=== PATIENT | male | born 1965 | race Caucasian/White ===

== ENCOUNTER 2021-01-17 14:57 | Emergency (ER) | payer SELFPAY ==
[~2021-01-17] VITALS: Ht 170 cm; Wt 72.7 kg
[~2021-01-17 14:57] MED LIST: ATEN25TA PO; INSASP10V SC; INSU100I16 SC; LISI10TA PO; METH4TAB PO; VARE1TAB17 PO
[2021-01-17] MEDS ORDERED: ATOR20TA66 PO (15:55)
[2021-01-17] MEDS ORDERED: ONDANSETRON 4 MG/2 ML (SDV) Z0FRAN IVP ONE (16:30)
[2021-01-17] MEDS ORDERED: LACTATED RINGERS 1,000 ML IV SCH ×2 (16:30→17:30)
--- NOTE | 2021-01-17 16:40 | ED GI ---
General Chief Complaint: Abdominal/GI Problems Stated Complaint: N/V,CONGESTION, HIGH BLOOD SUGAR Nursing Triage Note: pt c/o n/v starting yesterday with headache. called dr gaona's office for nausea meds et was instructed to come to ER for hyperglycemia. bs was 488 this morning et 340 just prior to arrival. he took 4 units of novolog prior to coming to ER. bs = 242 on arrival Source of Information: Patient Exam Limitations: No Limitations (LIZZY COLON APRN) History of Present Illness Date Seen by Provider: Jan 17, 2021 Time Seen by Provider: 16:39 Initial Comments To ER by private vehicle with reports of nausea and vomiting. He had a headache yesterday. No fevers or chills. He has a history of diabetes and his blood sugar was allegedly 488 this morning. Yesterday his blood sugar was controlled. No diarrhea. No abdominal pain. He was exposed to his granddaughter last week who had Covid though he tested negative for Covid on Thursday of this week. His headache is gone. Nausea vomiting persist. Timing/Duration: 1-2 Days Severity/Quality: Moderate Location: Other Radiation: No Radiation Activities at Onset: None Associated Symptoms: Nausea/Vomiting (LIZZY COLON APRN) Allergies and Home Medications Allergies Coded Allergies: NKANo Known Allergies (Verified Allergy, Unknown, 01/14/07) Home Medications Atenolol 25 Mg Tablet, 1 EACH PO DAILY, (Reported) Atorvastatin Calcium 20 Mg Tablet, 20 MG PO DAILY, (Reported) Last Action: New Order Insulin Aspart 10 Unit/0.1 Ml Vial, 8 UNIT SC AC, (Reported) Insulin Detemir 100 Unit/1 Ml Insuln.pen, 22 UNIT SC DAILY, (Reported) Last Action: Edited Lisinopril 10 Mg Tablet, 10 MG PO DAILY, (Reported) Ondansetron 8 Mg Tab.rapdis, 8 MG PO Q6H PRN for NAUSEA/VOMITING Prescribed by: LIZZY COLON on 01/17/211818 Patient Home Medication List Home Medication List Reviewed: Yes (LIZZY COLON APRN) Review of Systems Review of Systems Constitutional: see HPI EENTM: No Symptoms Reported Respiratory: No Symptoms Reported Cardiovascular: No Symptoms Reported Gastrointestinal: See HPI, Abdominal Pain, Nausea, Vomiting Genitourinary: No Symptoms Reported Musculoskeletal: no symptoms reported Skin: no symptoms reported Psychiatric/Neurological: No Symptoms Reported Endocrine: No Symptoms Reported Hematologic/Lymphatic: No Symptoms Reported (LIZZY COLON APRN) Past Orvzoej-Dkxiyu-Iqixls Hx Patient Social History Tobacco Use?: No Smoking Status: Former Smoker Substance use?: Yes Alcohol Use?: Yes Alcohol type: Hard Liquor Pt feels they are or have been: No (LIZZY COLON APRN) Immunizations Up To Date First/Initial COVID19 Vaccinat: july Second COVID19 Vaccination Maynor: august COVID19 Vaccine 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 oz. 72.902352bs; 25.00 BMI Method:Estimated General Appearance: WD/WN, no apparent distress Respiratory: no respiratory distress, no accessory muscle use Cardiovascular: regular rate, rhythm, no murmur Gastrointestinal: normal bowel sounds, soft Extremities: normal range of motion, non-tender Neurologic/Psychiatric: alert, normal mood/affect, oriented x 3 Skin: normal color, warm/dry (LIZZY COLON APRN) Progress/Results/Core Measures Results/Orders Lab Results Laboratory Tests Test 01/17/21 15:03 01/17/21 15:05 01/17/21 15:53 01/17/21 16:32 Range/Units White Blood Count 12.4 H 4.3-11.0 10^3/uL Red Blood Count 4.28 L 4.30-5.52 10^6/uL Hemoglobin 14.1 13.3-17.7 g/dL Hematocrit 41 40-54 % Mean Corpuscular Volume 95 80-99 fL Mean Corpuscular Hemoglobin 33 25-34 pg Mean Corpuscular Hemoglobin Concent 35 32-36 g/dL Red Cell Distribution Width 12.7 10.0-14.5 % Platelet Count 244 130-400 10^3/uL Mean Platelet Volume 10.2 9.0-12.2 fL Immature Granulocyte % (Auto) 0 % Neutrophils (%) (Auto) 78 H 42-75 % Lymphocytes (%) (Auto) 12 12-44 % Monocytes (%) (Auto) 10 0-12 % Eosinophils (%) (Auto) 0 0-10 % Basophils (%) (Auto) 0 0-10 % Neutrophils # (Auto) 9.6 H 1.8-7.8 10^3/uL Lymphocytes # (Auto) 1.5 1.0-4.0 10^3/uL Monocytes # (Auto) 1.2 H 0.0-1.0 10^3/uL Eosinophils # (Auto) 0.0 0.0-0.3 10^3/uL Basophils # (Auto) 0.0 0.0-0.1 10^3/uL Immature Granulocyte # (Auto) 0.1 0.0-0.1 10^3/uL Glucometer 242 H 70-110 MG/DL Sodium Level 135 135-145 MMOL/L Potassium Level 4.6 3.6-5.0 MMOL/L Chloride Level 98 98-107 MMOL/L Carbon Dioxide Level 25 21-32 MMOL/L Anion Gap 12 5-14 MMOL/L Blood Urea Nitrogen 31 H 7-18 MG/DL Creatinine 1.13 0.60-1.30 MG/DL Estimat Glomerular Filtration Rate 67 BUN/Creatinine Ratio 27 Glucose Level 238 H 70-105 MG/DL Calcium Level 10.4 H 8.5-10.1 MG/DL Corrected Calcium 10.0 8.5-10.1 MG/DL Total Bilirubin 2.3 H 0.1-1.0 MG/DL Aspartate Amino Transf (AST/SGOT) 37 H 5-34 U/L Alanine Aminotransferase (ALT/SGPT) 56 H 0-55 U/L Alkaline Phosphatase 98 40-136 U/L Total Protein 7.9 6.4-8.2 GM/DL Albumin 4.5 3.2-4.5 GM/DL Beta-Hydroxybutyrate (Chem panel) 1.60 H 0.00-0.27 MMOL/L Arterial Blood pH 7.44 H 7.37-7.43 SARS-CoV-2 RNA (RT-PCR) Not Detected Not Detecte Test 01/17/21 17:58 Range/Units Urine Color YELLOW Urine Clarity CLEAR Urine pH 6.0 5-9 Urine Specific [place] 1.025 H 1.016-1.022 Urine Protein TRACE H NEGATIVE Urine Glucose (UA) 3+ H NEGATIVE Urine Ketones 2+ H NEGATIVE Urine Nitrite NEGATIVE NEGATIVE Urine Bilirubin 2+ H NEGATIVE Urine Urobilinogen 0.2 < = 1.0 MG/DL Urine Leukocyte Esterase NEGATIVE NEGATIVE Urine RBC (Auto) TRACE-I NEGATIVE Urine RBC RARE /HPF Urine WBC RARE /HPF Urine Squamous Epithelial Cells RARE /HPF Urine Crystals NONE /LPF Urine Bacteria TRACE /HPF Urine Casts PRESENT /LPF Urine Hyaline Casts 2-5 H /LPF Urine Mucus MODERATE H /LPF Urine Culture Indicated NO (SHARIFA WEATHERS MD) Medications Given in ED Current Medications Medications Dose Ordered Sig/Johnathan Route Start Time Stop Time Status Last Admin Dose Admin Ondansetron HCl 8 mg ONCE ONCE IVP 01/17/21 16:30 01/17/21 16:31 DC 01/17/21 16:46 8 MG (SHARIFA WEATHERS MD) Vital Signs/I&O 01/17/21 01/17/21 15:44 18:40 Temp 36.4 36.4 Pulse 76 70 Resp 18 18 B/P (MAP) 140/86 (104) 109/82 (104) Pulse Ox 98 98 O2 Delivery Room Air (SHARIFA WEATHERS MD) Blood Pressure Mean: 104 FSBG Bedside Testing Finger Stick Blood Glucose: 242 (LIZZY COLON APRN) Departure Impression Primary Impression: Nausea & vomiting Disposition: 01 HOME, SELF-CARE Condition: Stable Departure-Patient Inst. Decision time for Depature: 18:17 (LIZZY COLON APRN) Referrals: SHARONDA GAONA MD (PCP/Family) Primary Care Physician Patient Instructions: No Instuctions Given Add. Discharge Instructions: 1. Return to ER for any concerns 2. Follow-up with your doctor next week 3. All discharge instructions reviewed with patient and/or family. Voiced understanding. Scripts Ondansetron (Ondansetron Odt) 8 Mg Tab.rapdis 8 MG PO Q6H PRN for NAUSEA/VOMITING, #10 TAB Prov: LIZZY COLON APRN 01/17/21 Work/School Note: Work Release Form Date Seen in the Emergency Department: Jan 19, 2021 Return to Work: Jan 17, 2021 ATTENDING PHYSICIAN NOTE: I was physically present as attending physician in the emergency department during the care of this patient, but I was not directly involved in the decision making or delivery of care for this patient. (SHARIFA WEATHERS MD) LIZZY COLON APRN Jan 17, 2021 16:40 SHARIFA WEATHERS MD Jan 17, 2021 19:29
[2021-01-17 16:49] LABS: BASOPHILS % (AUTO) 0 % (0-10); EOSINOPHILS % (AUTO) 0 % (0-10); HEMATOCRIT 41 % (40-54); HEMOGLOBIN 14.1 g/dL (13.3-17.7); LYMPHOCYTES # (AUTO) 1.5 10^3/uL (1.0-4.0); LYMPHOCYTES % (AUTO) 12 % (12-44); MEAN CORPUSCULAR HEMOGLOBIN 33 pg (25-34); MEAN CORPUSCULAR HGB CONC 35 g/dL (32-36); MEAN CORPUSCULAR VOLUME 95 fL (80-99); MEAN PLATELET VOLUME 10.2 fL (9.0-12.2); MONOCYTES # (AUTO) 1.2 10^3/uL (0.0-1.0); MONOCYTES % (AUTO) 10 % (0-12); NEUTROPHILS # (AUTO) 9.6 10^3/uL (1.8-7.8); NEUTROPHILS % (AUTO) 78 % (42-75); PLATELET COUNT 244 10^3/uL (130-400); WHITE BLOOD COUNT 12.4 10^3/uL (4.3-11.0)
[2021-01-17 16:52] LABS: ALBUMIN 4.5 GM/DL (3.2-4.5); POTASSIUM 4.6 MMOL/L (3.6-5.0)
[2021-01-17 16:54] LABS: CALCIUM 10.4 MG/DL (8.5-10.1)
[2021-01-17 16:55] LABS: TOTAL PROTEIN 7.9 GM/DL (6.4-8.2)
[2021-01-17 16:57] LABS: BILIRUBIN,TOTAL 2.3 MG/DL (0.1-1.0)
[2021-01-17 16:58] LABS: CREATININE SERUM 1.13 MG/DL (0.60-1.30)
[2021-01-17 18:04] LABS: CLARITY,URINE CLEAR; COLOR,URINE YELLOW; GLUCOSE, URINE (UA) 3+ (NEGATIVE); KETONES,URINE 2+ (NEGATIVE); LEUKOCYTE ESTERASE ,URINE NEGATIVE (NEGATIVE); NITRITE,URINE NEGATIVE (NEGATIVE); PROTEIN,URINE TRACE (NEGATIVE)
[2021-01-17 18:13] LABS: BACTERIA,URINE TRACE /HPF; BILIRUBIN,URINE 2+ (NEGATIVE); RBC,URINE RARE /HPF; SQUAMOUS EPITHELIAL CELL,UR RARE /HPF; WBC,URINE RARE /HPF
[2021-01-17] MEDS ORDERED: ONDA8TAB13 PO (18:19)
[2021-01-17 18:40] VITALS: BP 109/82
== END 2021-01-17 18:39 | disposition home or self-care (01) ==
LOC: EDUNIT# 14:57 → ER 14:59
DX: R11.2 Nausea with vomiting, unspecified (principal); E11.9 Type 2 diabetes mellitus without complications; Z20.822 Contact with and (suspected) exposure to COVID-19; Z87.891 Personal history of nicotine dependence; Z79.4 Long term (current) use of insulin
CPT/HCPCS: 36415; 80053; 81000; 82010; 82800; 82947; 85025; 87636

== ENCOUNTER 2021-04-21 05:07 | Emergency (ER) | payer SELFPAY ==
[~2021-04-21] VITALS: Ht 170 cm; Wt 73.0 kg
[~2021-04-21 05:07] MED LIST changes: +ATOR20TA66 PO; +ONDA8TAB13 PO
[2021-04-21] MEDS ORDERED: D5 NS 1000 ML IV SOLUTION 1,000 ML IV ONE ×2 (05:16→05:30)
--- NOTE | 2021-04-21 05:23 | ED General ---
General Chief Complaint: Glucose Problems Stated Complaint: LOW BLOOD SUGAR Nursing Triage Note: BROUGHT IN BY [facility] FOR LOW BLOOD GLUCOSE Source of Information: Patient Exam Limitations: No Limitations (HANANE CHAMORRO) History of Present Illness Date Seen by Provider: Apr 21, 2021 Time Seen by Provider: 05:09 Initial Comments Patient to the ER by EMS from home with chief complaint that he was unresponsive per his who could not get him to wake. EMS found his blood sugar to be 20. They gave him 250 cc of D10 normal saline. By the time he arrived to the EMS his blood sugar was 171. He is taking his insulin he states. He says he drinks every day about a pint of vodka. He is not having any pain, nausea, vomiting, diarrhea, fevers, chills, cough, sore throat, shortness of air. He says he got his booster vaccine for COVID-19 2 weeks ago and before that had 2 doses. He had influenza vaccine. (HANANE CHAMORRO) Allergies and Home Medications Allergies Coded Allergies: Bertin Known Allergies (Verified Allergy, Unknown, 01/14/07) Patient Home Medication List Home Medication List Reviewed: Yes (HANANE CHAMORRO) Home Medication List Reviewed: Yes (JACEY ABRAHAM MD) Atenolol (Tenormin 25 Mg) 25 Mg Tablet, 1 EACH PO DAILY, (Reported) Entered as Reported by: SANDRA JAUREGUI on 09/27/111845 Atorvastatin Calcium (Atorvastatin Calcium) 20 Mg Tablet, 20 MG PO DAILY, (Reported) Entered as Reported by: ISABELLA HANSEN on 01/17/211554 Insulin Aspart (Novolog) 10 Unit/0.1 Ml Vial, 8 UNIT SC AC, (Reported) Entered as Reported by: SANDRA JAUREGUI on 09/27/111845 Insulin Detemir (Levemir) 100 Unit/1 Ml Insuln.pen, 22 UNIT SC DAILY, (Reported) Entered as Reported by: SANDRA JAUREGUI on 09/27/111845 Lisinopril (Prinivil) 10 Mg Tablet, 10 MG PO DAILY, (Reported) Entered as Reported by: SANDRA JAUREGUI on 09/27/111845 Ondansetron (Ondansetron Odt) 8 Mg Tab.rapdis, 8 MG PO Q6H PRN for NAUSEA/VOMITING Prescribed by: LIZZY COLON on 01/17/211818 Review of Systems Review of Systems Constitutional: No chills, No diaphoresis EENTM: No ear discharge, No hearing loss Respiratory: No cough, No short of breath Cardiovascular: No edema, No palpitations Gastrointestinal: No abdominal pain, No constipation, No diarrhea; nausea; No vomiting Genitourinary: No discharge, No dysuria Musculoskeletal: No back pain, No joint pain (HANANE CHAMORRO) All Other Systems Reviewed Negative Unless Noted: Yes (HANANE CHAMORRO) Past Krtvxgb-Qossni-Ockdfj Hx Patient Social History Tobacco Use?: No Smoking Status: Former Smoker Substance use?: No Alcohol Use?: Yes Alcohol type: Beer, Hard Liquor Alcohol Frequency: Couple times a week Pt feels they are or have been: No (HANANE CHAMORRO) Immunizations Up To Date First/Initial COVID19 Vaccinat: july Second COVID19 Vaccination Maynor: august COVID19 Vaccine Straddle Truck Driver: CONTRERAS (HANANE CHAMORRO) Past Medical History Surgery/Hospitalization HX: IDDM,, HTN, HIGH CHOLESTEROL Reproductive Disorders: No Diabetes, Insulin dep Loss of Vision: Left (HANANE CHAMORRO) Physical Exam Vital Signs Vital Signs - First Documented 04/21/21 05:10 Temp 36.0 Pulse 104 Resp 18 B/P (MAP) 151/95 (113) Pulse Ox 97 O2 Delivery Room Air (JACEY ABRAHAM MD) Vital Signs Capillary Refill : Less Than 3 Seconds (HANANE CHAMORRO) Height, Weight, BMI Height: 5'7" Weight: 160lbs. oz. 72.451212wm; 25.00 BMI Method:Estimated General Appearance: Chronically ill, Mild Distress Eyes: Bilateral Eye Normal Inspection, Bilateral Eye PERRL, Bilateral Eye EOMI HEENT: PERRL/EOMI (Negative raccoon eyes), TMs Normal (Negative for talley sign or hemotympanum); No Moist Mucous Membranes Neck: Full Range of Motion, Normal Inspection, Non Tender, Supple Respiratory: Lungs Clear, Normal Breath Sounds, No Accessory Muscle Use, No Respiratory Distress Cardiovascular: Regular Rate, Rhythm, No Edema, Normal Peripheral Pulses Gastrointestinal: Normal Bowel Sounds, Non Tender, Soft Extremity: Normal Capillary Refill, Normal Inspection, Normal Range of Motion, No Pedal Edema Neurologic/Psychiatric: Alert, Oriented x3, Normal Mood/Affect Skin: Normal Color, Warm/Dry (HANANE CHAMORRO) Progress/Results/Core Measures Suspected Sepsis SIRS Temperature: Pulse: 104 Respiratory Rate: 18 Laboratory Tests 04/21/21 05:45: White Blood Count 8.5 Blood Pressure 151 /95 Mean: 113 Laboratory Tests 04/21/21 05:45: Creatinine 0.76, Platelet Count 256, Total Bilirubin 0.7 (HANANE CHAMORRO) Results/Orders Lab Results Laboratory Tests Test 04/21/21 05:14 04/21/21 05:45 04/21/21 06:00 04/21/21 06:06 Range/Units Glucometer 77 143 H 70-110 MG/DL White Blood Count 8.5 4.3-11.0 10^3/uL Red Blood Count 4.32 4.30-5.52 10^6/uL Hemoglobin 13.8 13.3-17.7 g/dL Hematocrit 41 40-54 % Mean Corpuscular Volume 96 80-99 fL Mean Corpuscular Hemoglobin 32 25-34 pg Mean Corpuscular Hemoglobin Concent 33 32-36 g/dL Red Cell Distribution Width 12.3 10.0-14.5 % Platelet Count 256 130-400 10^3/uL Mean Platelet Volume 9.6 9.0-12.2 fL Immature Granulocyte % (Auto) 0 % Neutrophils (%) (Auto) 81 H 42-75 % Lymphocytes (%) (Auto) 9 L 12-44 % Monocytes (%) (Auto) 9 0-12 % Eosinophils (%) (Auto) 1 0-10 % Basophils (%) (Auto) 1 0-10 % Neutrophils # (Auto) 6.9 1.8-7.8 10^3/uL Lymphocytes # (Auto) 0.8 L 1.0-4.0 10^3/uL Monocytes # (Auto) 0.8 0.0-1.0 10^3/uL Eosinophils # (Auto) 0.0 0.0-0.3 10^3/uL Basophils # (Auto) 0.0 0.0-0.1 10^3/uL Immature Granulocyte # (Auto) 0.0 0.0-0.1 10^3/uL Sodium Level 140 135-145 MMOL/L Potassium Level 4.0 3.6-5.0 MMOL/L Chloride Level 103 98-107 MMOL/L Carbon Dioxide Level 25 21-32 MMOL/L Anion Gap 12 5-14 MMOL/L Blood Urea Nitrogen 14 7-18 MG/DL Creatinine 0.76 0.60-1.30 MG/DL Estimat Glomerular Filtration Rate 106 BUN/Creatinine Ratio 18 Glucose Level 192 H 70-105 MG/DL Calcium Level 8.4 L 8.5-10.1 MG/DL Corrected Calcium 8.5 8.5-10.1 MG/DL Total Bilirubin 0.7 0.1-1.0 MG/DL Aspartate Amino Transf (AST/SGOT) 26 5-34 U/L Alanine Aminotransferase (ALT/SGPT) 24 0-55 U/L Alkaline Phosphatase 68 40-136 U/L C-Reactive Protein High Sensitivity 0.08 0.00-0.50 MG/DL Total Protein 6.6 6.4-8.2 GM/DL Albumin 3.9 3.2-4.5 GM/DL Serum Alcohol 74 H <10 MG/DL Urine Color YELLOW Urine Clarity CLEAR Urine pH 5.5 5-9 Urine Specific [place] 1.015 L 1.016-1.022 Urine Protein NEGATIVE NEGATIVE Urine Glucose (UA) 1+ H NEGATIVE Urine Ketones NEGATIVE NEGATIVE Urine Nitrite NEGATIVE NEGATIVE Urine Bilirubin NEGATIVE NEGATIVE Urine Urobilinogen 0.2 < = 1.0 MG/DL Urine Leukocyte Esterase NEGATIVE NEGATIVE Urine RBC (Auto) NEGATIVE NEGATIVE Urine RBC NONE /HPF Urine WBC NONE /HPF Urine Squamous Epithelial Cells NONE /HPF Urine Crystals NONE /LPF Urine Bacteria NEGATIVE /HPF Urine Casts NONE /LPF Urine Mucus NEGATIVE /LPF Urine Culture Indicated NO Urine Opiates Screen NEGATIVE NEGATIVE Urine Oxycodone Screen NEGATIVE NEGATIVE Urine Methadone Screen NEGATIVE NEGATIVE Urine Propoxyphene Screen NEGATIVE NEGATIVE Urine Barbiturates Screen NEGATIVE NEGATIVE Ur Tricyclic Antidepressants Screen NEGATIVE NEGATIVE Urine Phencyclidine Screen NEGATIVE NEGATIVE Urine Amphetamines Screen POSITIVE H NEGATIVE Urine Methamphetamines Screen POSITIVE H NEGATIVE Urine Benzodiazepines Screen NEGATIVE NEGATIVE Urine Cocaine Screen NEGATIVE NEGATIVE Urine Cannabinoids Screen NEGATIVE NEGATIVE Test 04/21/21 07:28 04/21/21 08:16 04/21/21 08:59 Range/Units Glucometer 124 H 147 H 185 H 70-110 MG/DL (JACEY ABRAHAM MD) My Orders Orders - JACEY ABRAHAM MD Accucheck Stat ONCE (04/21/21 07:27) Accucheck Stat ONCE (04/21/21 08:24) (JACEY ABRAHAM MD) Medications Given in ED (JACEY ABRAHAM MD) Vital Signs/I&O 04/21/21 04/21/21 05:10 09:00 Temp 36.0 Pulse 104 97 Resp 18 18 B/P (MAP) 151/95 (113) 133/85 Pulse Ox 97 97 O2 Delivery Room Air Room Air (JACEY ABRAHAM MD) Vital Signs/I&O Capillary Refill : Less Than 3 Seconds (HANANE CHAMORRO) Blood Pressure Mean: 113 Progress Note : Time: 05:22 Progress Note From the last blood sugar 171 by the time he got in the ER his blood sugar was 79. We will start D5 normal saline at 100 an hour and get him something to eat. We will give him a liter of fluids as he appears to be dry. Thiamine and folate. Labs and urinalysis. (HANANE CHAMORRO) Progress Note #1: Time: 06:46 Progress Note Patient reexamined at 645, resting comfortably. No complaints of fever, chills, cough, nausea vomiting or diarrhea. No urinary complaints. He does not really remember the events of the morning. He states he vaguely remembers coming into the emergency department. He currently has D10 normal saline running, stable vital signs. Last blood sugar was acceptable. He has eaten a little breakfast. He is sipping on orange juice. He is awake alert and oriented currently. General physical exam is unremarkable. He has no complaints of rashes, wounds or sores. Labs have been reviewed and are within normal limits. Chest x-ray is clear. Will stop the D10 normal saline at 7 AM, recheck a blood sugar and monitor him for about an hour, if his blood sugar remained stable we will discharge him to home. He follows at [facility]. He recently saw Dr. Suarez about 3 weeks ago. States that he sees him about once every 3 months. His is present at the bedside. They are comfortable with this plan of care. Progress Note #2: Time: 08:38 Progress Note Patient's blood sugars have been stable throughout the morning, last one was 147. High I have discussed discharge with the patient. He is comfortable with going home. I recommended that he always eat after he takes his insulin. Return precautions have been given. Vital signs are stable. No clinical or objective findings to warrant further observation or evaluation from the emergency department. I recommended that he follow-up with Dr. Patel at [facility] regarding this episode of low blood sugar. Patient verbalized understanding. All questions are sought and answered. Patient is stable for discharge. (JACEY ABRAHAM MD) Diagnostic Imaging Diagonstic Imaging: Xray Plain Films/CT/US/NM/MRI: chest Comments [facility], [facility]. [place], [place] NAME: [facility] REC#: [id number] PT STATUS: REG ER : 1965 PHYSICIAN: HANANE CHAMORRO MD ADMIT DATE: 04/21/21/ER Draft Date of Exam:04/21/21 CHEST 1 VIEW, AP/PA ONLY Indication: Dyspnea, hypoglycemia. Comparison: 12/22/2013. Discussion: Single portable upright view of the chest was obtained. Normal heart size. No consolidation, pleural fluid, or pneumothorax. Old right rib fractures are stable. Impression: 1. Negative chest. Dictated on workstation # [id number] Dict: 04/21/21 0544 Trans: 04/21/21 0546 [facility] [id number] Interpreted by: SHARONDA ABEL MD Electronically signed by: Reviewed: Reviewed by Me (HANANE CHAMORRO) Transfer of Care Transfer of Care Time: 06:00 Care transferred to: Dr. Abraham (HANANE CHAMORRO) Departure Impression Primary Impression: Hypoglycemia associated with diabetes Disposition: 01 HOME, SELF-CARE Condition: Improved Departure-Patient Inst. Decision time for Depature: 08:40 (JACEY ABRAHAM MD) Referrals: SHARONDA PATEL MD (PCP/Family) Primary Care Physician Patient Instructions: Low Blood Sugar in People With Diabetes Add. Discharge Instructions: Please always eat after you take your insulin. Drink plenty of fluids to stay well-hydrated. Please follow-up with your provider at [facility] about this episode of low blood sugar. Come back to the emergency department for any new, concerning or emergent complaints. Copy Copies To 1: SHARONDA PATEL MD, TITUS J Apr 21, 2021 05:23 JACEY ABRAHAM MD Apr 21, 2021 06:48
[2021-04-21] MEDS ORDERED: THIAMINE 100 MG (VITAMIN B-1) TAB PO ONE (05:30)
[2021-04-21] MEDS ORDERED: NS IV 1000 ML 1,000 ML IV SCH (05:30)
[2021-04-21] MEDS ORDERED: FOLIC ACID 1 MG TAB PO ONE (05:30)
--- NOTE | 2021-04-21 05:46 | Diagnostic Imaging Report ---
Indication: Dyspnea, hypoglycemia. Comparison: 12/22/2013. Discussion: Single portable upright view of the chest was obtained. Normal heart size. No consolidation, pleural fluid, or pneumothorax. Old right rib fractures are stable. Impression: 1. Negative chest. Dictated by: Dictated on workstation # [id number]
[2021-04-21 05:51] LABS: BASOPHILS % (AUTO) 1 % (0-10); EOSINOPHILS % (AUTO) 1 % (0-10); HEMATOCRIT 41 % (40-54); HEMOGLOBIN 13.8 g/dL (13.3-17.7); LYMPHOCYTES # (AUTO) 0.8 10^3/uL (1.0-4.0); LYMPHOCYTES % (AUTO) 9 % (12-44); MEAN CORPUSCULAR HEMOGLOBIN 32 pg (25-34); MEAN CORPUSCULAR HGB CONC 33 g/dL (32-36); MEAN CORPUSCULAR VOLUME 96 fL (80-99); MEAN PLATELET VOLUME 9.6 fL (9.0-12.2); MONOCYTES # (AUTO) 0.8 10^3/uL (0.0-1.0); MONOCYTES % (AUTO) 9 % (0-12); NEUTROPHILS # (AUTO) 6.9 10^3/uL (1.8-7.8); NEUTROPHILS % (AUTO) 81 % (42-75); PLATELET COUNT 256 10^3/uL (130-400); WHITE BLOOD COUNT 8.5 10^3/uL (4.3-11.0)
[2021-04-21 06:06] LABS: BILIRUBIN,URINE NEGATIVE (NEGATIVE); CLARITY,URINE CLEAR; COLOR,URINE YELLOW; GLUCOSE, URINE (UA) 1+ (NEGATIVE); KETONES,URINE NEGATIVE (NEGATIVE); LEUKOCYTE ESTERASE ,URINE NEGATIVE (NEGATIVE); NITRITE,URINE NEGATIVE (NEGATIVE); PH,URINE 5.5 (5-9); PROTEIN,URINE NEGATIVE (NEGATIVE)
[2021-04-21 06:07] LABS: ALBUMIN 3.9 GM/DL (3.2-4.5)
[2021-04-21 06:08] LABS: CALCIUM 8.4 MG/DL (8.5-10.1)
[2021-04-21 06:10] LABS: TOTAL PROTEIN 6.6 GM/DL (6.4-8.2)
[2021-04-21 06:12] LABS: BILIRUBIN,TOTAL 0.7 MG/DL (0.1-1.0)
[2021-04-21 06:14] LABS: CREATININE SERUM 0.76 MG/DL (0.60-1.30)
[2021-04-21 06:14] LABS: BACTERIA,URINE NEGATIVE /HPF
[2021-04-21 06:18] LABS: AMPHETAMINE SCREEN, URINE POSITIVE (NEGATIVE); BARBITURATE SCREEN URINE NEGATIVE (NEGATIVE); BENZODIAZEPINES SCREEN URINE NEGATIVE (NEGATIVE); CANNABINOID SCREEN, URINE NEGATIVE (NEGATIVE); COCAINE SCREEN URINE NEGATIVE (NEGATIVE); METHADONE STAT NEGATIVE (NEGATIVE); METHAMPHETAMINE SCREEN URINE S POSITIVE (NEGATIVE); OPIATE SCREEN URINE NEGATIVE (NEGATIVE); OXYCODONE STAT NEGATIVE (NEGATIVE); PROPOXYPHENE STAT NEGATIVE (NEGATIVE); TRICYCLIC ANTIDEPRESSANTS SCRE NEGATIVE (NEGATIVE)
[2021-04-21 09:00] VITALS: BP 133/85
== END 2021-04-21 09:00 | disposition home or self-care (01) ==
LOC: EDUNIT# 05:07 → ER 05:10
DX: E11.649 Type 2 diabetes mellitus with hypoglycemia without coma (principal); I10 Essential (primary) hypertension; E78.00 Pure hypercholesterolemia, unspecified; Z87.891 Personal history of nicotine dependence; Z79.4 Long term (current) use of insulin; Z79.899 Other long term (current) drug therapy
CPT/HCPCS: 71045; 80053; 80306; 81000; 82947; 85025; 86141; 99282; G0480; 36415; 80320

== ENCOUNTER 2021-11-27 06:41 | Outpatient (CLI) | payer SELFPAY ==
[~2021-11-27] VITALS: Ht 170 cm; Wt 69.4 kg
[2021-11-29] MEDS ORDERED: INSU100I29 SQ (13:52)
[2021-11-29] MEDS ORDERED: ATEN25TA PO (13:52)
[2021-11-29] MEDS ORDERED: INSU100I55 SQ (13:52)
[2021-11-29] MEDS ORDERED: LISI10TA25 PO (13:52)
[2021-11-29] MEDS ORDERED: ASPI-999 PO (13:52)
== END 2021-11-29 13:53 | disposition home or self-care (01) ==
LOC: PREOP 06:41
PROVIDERS: ATTEND Surgery
DX: Z01.818 Encounter for other preprocedural examination (principal)

== ENCOUNTER 2022-09-03 05:42 | Outpatient (CLI) | payer OTHER ==
[~2022-09-03] VITALS: Ht 170.2 cm; Wt 69.4 kg
[~2022-09-03 05:42] MED LIST changes: +ASPI-999 PO; +INSU100I30 SQ; +INSU100I55 SQ; +LISI10TA25 PO
== END 2022-09-03 15:42 | disposition home or self-care (01) ==
LOC: PREOP 05:42
PROVIDERS: ATTEND Surgery
DX: Z01.818 Encounter for other preprocedural examination (principal)

== ENCOUNTER 2022-09-16 08:44 | Day surgery (SDC) | payer OTHER ==
[~2022-09-16] VITALS: Ht 170 cm; Wt 69.4 kg
[2022-09-16] MEDS ORDERED: LACTATED RINGERS 1,000 ML IV STA (08:45)
[2022-09-16 09:00] VITALS: BP 126/77
[2022-09-16] MEDS ORDERED: PROPOFOL INJECTION 50 ML IV ONE (09:41)
[2022-09-16 09:55] VITALS: BP 106/63
--- NOTE | 2022-09-16 09:55 | Discharge Inst-Simple/Standard ---
Discharge Inst-Standard Reconcile Patient Problems Problems Reviewed?: Yes Patient Instructions/Follow Up Plan of Care/Instructions/FU: Repeat colonoscopy in 10 years, 5 years if any family history. If any issues, to be seen at that time. Activity as Tolerated: Yes Discharge Diet: No Restrictions, Regular Diet JOSHUA MCCARTHY DO Sep 16, 2022 09:55
--- NOTE | 2022-09-16 09:56 | Progress Note-Post Operative ---
Post-Operative Progess Note Surgeon (s)/Supervisor Sign Shop (s) Surgeon JOSHUA MCCARTHY DO Supervisor Sign Shop: n/a Pre-Operative Diagnosis screening for colon cancer Post-Operative Diagnosis normal colon Procedure & Operative Findings Date of Procedure 09/16/22 Procedure Performed/Findings colonoscopy Anesthesia Type per [facility] Estimated Blood Loss Estimated blood loss (mL): none Specimens/Packing Specimens Removed none JOSHUA MCCARTHY DO Sep 16, 2022 09:56
[2022-09-16 10:00] VITALS: BP 101/58
[2022-09-16 10:18] VITALS: BP 101/58
--- NOTE | 2022-09-16 11:30 | Anesthesia-General Post-Op ---
MAC Patient Condition Mental Status/LOC: Same as Preop Cardiovascular: Satisfactory Nausea/Vomiting: Absent Respiratory: Satisfactory Pain: Controlled Complications: Absent Post Op Complications Complications None Follow Up Care/Instructions Patient Instructions None needed. Anesthesiology Discharge Order Discharge Order Patient was doing well this morning after the procedure with no complaints, stable vital signs, no apparent adverse anesthesia problems. No complications reported per nursing. RAFFAELE BELCHER DO Sep 16, 2022 11:30
--- NOTE | 2022-09-16 17:31 | OPERATIVE REPORT ---
DATE OF SERVICE: 09/16/2022 PREOPERATIVE DIAGNOSIS: Screening colonoscopy. POSTOPERATIVE DIAGNOSIS: Normal colon. PROCEDURE: Colonoscopy. SURGEON: Joshua Briseno DO ANESTHESIA: Per MDA. ESTIMATED BLOOD LOSS: None. COMPLICATIONS: None. INDICATIONS: The patient is a 57-year-old male, needing screening colonoscopy. He understands risks and benefits of procedure and wished to proceed. Consent was signed in chart. DESCRIPTION OF PROCEDURE: The patient was taken to endoscopy suite, placed in left lateral recumbent position. Timeout was performed. Digital rectal exam was performed. No palpable polyps, masses or ulcerations. Scope was inserted in the rectum, advanced all the way to the cecum with minimal difficulty. Prep was adequate. Scope was slowly retracted back. No polyps, masses or ulcerations in the cecum, ascending, transverse, descending and sigmoid colon. Once in the rectum, scope was retroflexed noting no other pathology. Scope was returned to its normal position, slowly withdrawn until completely removed. The patient tolerated the procedure well without complications, taken to recovery room in stable condition. RECOMMENDATIONS: The patient will need repeat colonoscopy in 10 years unless family history of colon cancer, which was then be 5 years. Any issues before that, be seen at that time. Job ID: [id number] DocumentID: [id number] Dictated Date: 09/16/2022 09:57:31 Clinical Research Monitor Date: 09/16/2022 17:29:00 Dictated By: JOSHUA BRISENO DO
== END 2022-09-16 10:24 | disposition home or self-care (01) ==
LOC: ENDO 08:44
PROVIDERS: ATTEND Surgery
DX: Z12.11 Encounter for screening for malignant neoplasm of colon (principal); Z87.891 Personal history of nicotine dependence